=== PATIENT | male | born 1980 | race Caucasian/White ===

== ENCOUNTER 2019-03-13 15:49 | Emergency (ER) | payer OTHER ==
--- OUTSIDE RECORDS SUMMARY | 2019-03-13 16:21 | XMS REPORT | Continuity of Care Document ---
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 Onset: 12/23/2015 Elevated blood-pressure reading without Courtney Camarena M.D. Onset: 12/23/2015 diagnosis of hypertension Intra-abdominal and pelvic swelling, mass and Courtney Camarena M.D. Onset: lump Onychomycosis Courtney Camarena M.D. Onset: 12/23/2015 Varicose veins of lower extremity Courtney Camarena M.D. Onset: 12/23/2015 Hyperlipidemia Courtney Camarena M.D. Onset: 01/02/2016 Vitamin D deficiency Courtney Camarena M.D. Onset: 01/02/2016 Thrombocytopenic disorder Courtney Camarena M.D. Onset: 01/02/2016 Secondary endocrine diabetes mellitus Courtney Camarena M.D. Onset: 01/02/2016 Unspecified abdominal hernia without Courtney Camarena M.D. Onset: 01/02/2016 obstruction or gangrene Essential hypertension Courtney Camarena M.D. Onset: 01/02/2016 Mixed hyperlipidemia Courtney Camarena M.D. Onset: 06/11/2016 Obesity Courtney Camarena M.D. Onset: 06/11/2016 Type 2 diabetes mellitus Courtney Camarena M.D. Onset: 06/11/2016 Taking medication Courtney Camarena M.D. Onset: 06/11/2016 Gastroesophageal reflux disease Courtney Camarena M.D. Onset: 02/11/2017 Nausea Courtney Camarena M.D. Onset: 02/11/2017 Immunization Courtney Camarena M.D. Onset: 07/23/2017 Chalazion Courtney Camarena M.D. Onset: 09/20/2017 External hordeolum Courtney Camarena M.D. 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 @ [employer] ETOH Use Denies alcohol use Tobacco Use Start: Unknown Patient denies history of smoking Recreational Drug Use Never Used Drugs Smoking Status Reviewed: 02/27/19 Patient denies history of smoking Exercise Type/Frequency Does not exercise Allergies, Adverse Reactions, Alerts Description No Known Drug Allergies Medications Active Medications SIG Qnty Indications Ordering Date Provider Tamiflu 1 tab by mouth once 7caps Z20.828 Cristian Doyle MD 11/12/2018 75mg a day as directed Capsules Steglatro take 1 tablet by 90tabs Cristian Doyle MD 05/23/2018 5mg mouth every morning Tablets Metformin HCL 1 by mouth twice a 180tabs Cristian Doyle MD 04/14/2018 day 1000mg Tablets Amlodipine Besylate 1 by mouth every 90tabs I10 Cristian Doyle MD 02/14/2018 day 5mg Tablets Ramipril 1 by mouth twice 180caps Julieth Lai, 09/20/2017 10mg daily MD Capsules Pravastatin Sodium 1 by mouth every 90tabs E78.2 Courtney Camarena, 11/05/2016 day M.D. 20mg Tablets Fenofibrate 1 by mouth every 90caps E78.2 Courtney Camarena, 06/21/2016 Micronized day M.D. 134mg Capsules Freestyle Lancets Use directed twice 100units Courtney Camarena, 01/03/2016 daily before M.D. Misc breakfast and before supper Freestyle Test use as directed 100units Courtney Camarena, 01/03/2016 twice daily (before M.D. Strips breakfast and before supper) Freestyle Precision Freestyle glucose 1units Courtney Camarena, 01/03/2016 Isak Bood Glucose monitor Disp. 1 M.D. Monitoring System Sig. Use as directed twice W/Device Kit daily for blood glucose measurement Fish Oil Adult 1 po daily Unknown Gummies 113.5mg Chewtabs Vitamin D3 Adult 2 by mouth every 30units Unknown Gummies day 1000Unit Chewtabs Ranitidine HCL take one tablet by 180tabs Courtney Camarena, mouth twice a day M.D. 150mg Tablets History Medications Invokana 1 by mouth every 90tabs Courtney Camarena, 04/14/2018 - 300mg day M.D. 05/23/2018 Tablets Cephalexin Take 1 capsule 14caps H00.14 Courtney Camarena, 09/20/2017 - 500mg twice a day for 7 M.D. 02/14/2018 Capsules days Lisinopril 1 by mouth every 90tabs R80.9 Nicky Bright, 05/21/2017 - 10mg day M.D. 09/20/2017 Tablets Altace 1 by mouth twice a 180caps E08.21 Nicky Bright, 11/22/2016 - 10mg day M.D. 08/26/2017 Capsules Invokamet 1 by mouth twice a 180tabs E08.21 Courtney Camarena, 11/22/2016 - day M.D. 04/14/2018 150-1000mg Tablets Amlodipine Besylate 1 by mouth every 90tabs I10 Courtney Camarena, 11/05/2016 - day M.D. 02/14/2018 2.5mg Tablets Altace 1 tab by mouth 90caps E66.9 Nicky Bright, 06/21/2016 - 10mg every day M.D. 11/22/2016 Capsules Lovaza 1 capsule by mouth 180caps E78.2 Courtney Camarena, 06/11/2016 - 1gm Capsules twice a day M.D. Unknown (generic equivalent omega 3 fatty acid ok) Altace 1 tab by mouth 90caps I10 Nicky Bright, 03/15/2016 - 5mg Capsules every day M.D. 06/21/2016 Invokamet 1 by mouth twice a 180tabs E66.9 Nicky Bright, 03/15/2016 - 50-500mg day M.D. 11/22/2016 Tablets Invokana 1 by mouth every 90tabs E66.9 Nicky Bright, 01/24/2016 - 100mg day M.D. Unknown Tablets Metformin HCL 1 tab by mouth 180tabs E08.9 Courtney Camarena, 01/02/2016 - 500mg twice a day M.D. Unknown Tablets [place] 3 1 cap by mouth 60caps E78.5 Courtney Camarena, 01/02/2016 - 1000mg twice a day M.D. 02/01/160 Capsules Vitamin D 1 tab by mouth 4caps E55.9 Courtney Camarena, 01/02/2016 - (Ergocalciferol) once a week for 4 M.D. 06/11/2016 weeks [id number] Capsules Altace 1 tab by mouth 90caps E08.9 Courtney Camarena, 01/02/2016 - 2.5mg every day in the M.D. 03/15/2016 Capsules evening No Active Courtney Camarena, 12/23/2015 - Medications M.D. 01/02/2016 Slow-Mag 1 tab po bid Unknown - 71.5-119mg Unknown Tablets Immunizations CPT Code Status Date Vaccine Reaction Lot # [id number] Given 06/13/2018 Influenza Virus Vaccine, Quadrivalent, 36 none [id number] Mos+, .5ML [id number] Given 07/23/2017 Influenza Virus Vaccine Quadrivalent Iiv4 none [id number] Split Preser Free Id [id number] Given 09/02/2014 Influenza Vaccine (Fluzone) Age 3 And Older U-Menin Given 04/02/2002 Meningococcal,Unspecified U-Tetan Given 10/31/1997 Tetanus,Unspecified Vital Signs Date Vital Result Comment 11/12/2018 4:35pm BP Systolic 138 mmHg BP Diastolic 82 mmHg Heart Rate 110 /min Respiratory Rate 18 /min Height 68.25 inches 5'8.25" Weight 245.00 lb BMI (Body Mass Index) 37.0 kg/m2 BSA (Body Surface Area) 2.23 m2 [facility] body weight in kilograms 71 kg O2 % BldC Oximetry 98 % Ra 06/13/2018 1:17pm BP Systolic Sitting Left Arm 110 mmHg BP Diastolic Sitting Left Arm 80 mmHg Body Temperature 98.4 F Heart Rate 100 /min Respiratory Rate 24 /min Height 68.25 inches 5'8.25" Weight 241.00 lb BMI (Body Mass Index) 36.4 kg/m2 BSA (Body Surface Area) 2.22 m2 [facility] body weight in kilograms 71 kg O2 % BldC Oximetry 98 % 05/06/2018 9:30am BP Systolic 137 mmHg BP Diastolic 91 mmHg Body Temperature 97.6 F Heart Rate 114 /min Respiratory Rate 18 /min Height 68.25 inches 5'8.25" Weight 240.50 lb BMI (Body Mass Index) 36.3 kg/m2 BSA (Body Surface Area) 2.22 m2 [facility] body weight in kilograms 71 kg O2 % BldC Oximetry 95 % 02/14/2018 12:59pm BP Systolic 146 mmHg BP Diastolic 95 mmHg Body Temperature 98.3 F Heart Rate 113 /min Respiratory Rate 22 /min Height 68.25 inches 5'8.25" Weight 240.00 lb BMI (Body Mass Index) 36.2 kg/m2 BSA (Body Surface Area) 2.21 m2 [facility] body weight in kilograms 71 kg O2 % BldC Oximetry 97 % 09/20/2017 2:45pm BP Systolic 156 mmHg BP Diastolic 97 mmHg Heart Rate 119 /min Respiratory Rate 16 /min Height 68.25 inches 5'8.25" Weight 244.25 lb BMI (Body Mass Index) 36.9 kg/m2 BSA (Body Surface Area) 2.23 m2 [facility] body weight in kilograms 71 kg O2 % BldC Oximetry 96 % 07/23/2017 1:32pm BP Systolic 137 mmHg BP Diastolic 87 mmHg Heart Rate 110 /min Respiratory Rate 16 /min Height 68.25 inches 5'8.25" Weight 247.00 lb BMI (Body Mass Index) 37.3 kg/m2 BSA (Body Surface Area) 2.24 m2 [facility] body weight in kilograms 71 kg O2 % BldC Oximetry 97 % 05/21/2017 2:32pm BP Systolic 136 mmHg BP Diastolic 88 mmHg Height 68.25 inches 5'8.25" Weight 245.00 lb BMI (Body Mass Index) 37.0 kg/m2 BSA (Body Surface Area) 2.23 m2 [facility] body weight in kilograms 71 kg 02/25/2017 2:16pm BP Systolic 138 mmHg BP Diastolic 82 mmHg Heart Rate 104 /min Respiratory Rate 16 /min Height 68.25 inches 5'8.25" Weight 241.00 lb BMI (Body Mass Index) 36.4 kg/m2 BSA (Body Surface Area) 2.22 m2 [facility] body weight in kilograms 71 kg O2 % BldC Oximetry 98 % 02/11/2017 2:27pm BP Systolic 159 mmHg BP Diastolic 102 mmHg Heart Rate 109 /min Respiratory Rate 24 /min Height 68.25 inches 5'8.25" Weight 242.00 lb BMI (Body Mass Index) 36.5 kg/m2 BSA (Body Surface Area) 2.22 m2 [facility] body weight in kilograms 71 kg O2 % BldC Oximetry 95 % 11/22/2016 2:12pm BP Systolic 134 mmHg BP Diastolic 80 mmHg Height 68.25 inches 5'8.25" Weight 247.00 lb BMI (Body Mass Index) 37.3 kg/m2 BSA (Body Surface Area) 2.24 m2 11/05/2016 2:31pm BP Systolic 150 mmHg BP Diastolic 80 mmHg Body Temperature 98.1 F Heart Rate 106 /min Respiratory Rate 20 /min Height 68.25 inches 5'8.25" Weight 244.25 lb BMI (Body Mass Index) 36.9 kg/m2 BSA (Body Surface Area) 2.23 m2 O2 % BldC Oximetry 98 % 06/21/2016 12:58pm BP Systolic 138 mmHg BP Diastolic 90 mmHg Height 68.25 inches 5'8.25" Weight 234.00 lb BMI (Body Mass Index) 35.3 kg/m2 BSA (Body Surface Area) 2.19 m2 06/11/2016 1:25pm BP Systolic 110 mmHg BP Diastolic 84 mmHg Heart Rate 99 /min Respiratory Rate 20 /min Height 68.25 inches 5'8.25" Weight 233.00 lb BMI (Body Mass Index) 35.2 kg/m2 BSA (Body Surface Area) 2.19 m2 O2 % BldC Oximetry 98 % 05/08/2016 2:37pm Height 68.25 inches 5'8.25" Weight 225.00 lb BMI (Body Mass Index) 34.0 kg/m2 BSA (Body Surface Area) 2.15 m2 [facility] body weight in kilograms 71 kg 03/15/2016 11:20am BP Systolic 138 mmHg BP Diastolic 90 mmHg Height 68.25 inches 5'8.25" Weight 222.25 lb BMI (Body Mass Index) 33.5 kg/m2 BSA (Body Surface Area) 2.14 m2 02/14/2016 2:39pm Height 68.25 inches 5'8.25" Weight 221.00 lb BMI (Body Mass Index) 33.4 kg/m2 BSA (Body Surface Area) 2.14 m2 [facility] body weight in kilograms 71 kg 01/24/2016 1:12pm BP Systolic 158 mmHg BP Diastolic 90 mmHg Height 68.25 inches 5'8.25" Weight 223.00 lb BMI (Body Mass Index) 33.7 kg/m2 BSA (Body Surface Area) 2.15 m2 01/02/2016 2:34pm BP Systolic 148 mmHg BP Diastolic 88 mmHg Body Temperature 97.9 F Heart Rate 103 /min Respiratory Rate 20 /min Height 68.25 inches 5'8.25" Weight 223.00 lb BMI (Body Mass Index) 33.7 kg/m2 BSA (Body Surface Area) 2.15 m2 O2 % BldC Oximetry 98 % 12/23/2015 8:39am BP Systolic 158 mmHg L Arm BP Diastolic 100 mmHg L Arm Body Temperature 96.3 F Heart Rate 97 /min Respiratory Rate 16 /min Height 68.25 inches 5'8.25" Weight 221.00 lb BMI (Body Mass Index) 33.4 kg/m2 BSA (Body Surface Area) 2.14 m2 O2 % BldC Oximetry 96 % Results Test Date Facility Test Result H/L Range Note CBC 03/09/[address] White Blood 6.1 K/uL Normal 3.4-10.5 1 W/Automated [address] Count Diff [place], [place] [id number] [phone] Red Blood Count 5.48 M/uL Normal 4.20-5.80 Hemoglobin 15.8 gm/dL Normal 12.8-17.0 Hematocrit 46.1 % Normal 38.0-48.0 Mean Cell Volume 84.1 fl Normal 80.0-96.0 Mean Corpuscular HGB 28.8 pg Normal 27.0-33.0 Mean Corpuscular HGB Conc 34.3 g/dL Normal 31.7-36.0 Platelet Count 163 K/uL Normal 155-360 Red Cell Distri Width SD 38.5 fl Normal 36-51 Red Cell Distri Width %CV 12.7 % Normal 11.6-15.8 Mean Platelet Volume 12.4 fl High 6.6-10.6 Neut% 49.4 % Normal 33.0-73.0 Lymph % 39.4 % Normal 20.0-42.0 [place] % 9.7 % Normal 0.0-10.0 Eo% 1.0 % Normal 0.0-6.6 Bas% 0.3 % Normal 0.0-1.1 Immature Grans 0.2 % Normal 0.0-5.0 NRBC % 0.0 /100WBC < 10/ 100 WBC Neut# 3.01 K/uL Normal 1.8-7.0 Lymph # 2.40 K/uL Normal 1.0-4.0 [place] # 0.59 K/uL Normal 0.0-0.8 Eos # 0.06 K/uL Normal 0.0-0.5 Baso # 0.02 K/uL Normal 0.0-0.1 Immature Grans Absolute 0.01 K/uL NRBC # 0.00 K/uL Comprehensive Metabolic 03/09/[address] [facility] [address] Glucose 218 mg/dL High 74-106 Panel [address] [place] [address] [phone] BUN 17 mg/dL Normal 7-18 Creatinine 0.9 mg/dL Normal 0.6-1.3 Glom Filtration Rate, Estimate >60 mL/min >60 If >60 mL/min >60 2 BUN/Creat 18.8 ratio Sodium 138 mmol/L Normal 136-145 Potassium 3.7 mmol/L Normal 3.5-5.1 Chloride 103 mmol/L Normal 98-107 Carbon Dioxide 25 mmol/L Normal 21-32 Anion Gap 10 mEq/L Normal 8-16 Calcium 8.6 mg/dL Normal 8.5-10.1 Total Protein 7.6 g/dL Normal 6.4-8.2 Albumin 3.6 g/dL Normal 3.4-5.0 Globulin 4.0 g/dL Normal 1.9-4.3 Alb/Glob 0.9 ratio Bilirubin,Total 0.3 mg/dL Normal 0.2-1.0 Sgot/Ast 32 U/L Normal 15-37 SGPT/Alt 56 U/L Normal 12-78 Alkaline Phosphatase 106 U/L Normal 45-117 LDL Cholesterol Profile 03/09/[address] [facility] [address] Cholesterol 181 mg/dL <200 3 [address] [place] [address] [phone] Triglycerides 405 mg/dL High <150 4 HDL Cholesterol 34 mg/dL Low >40 5 LDL-Cholesterol TNP mg/dL < 100 6 Glycohemoglobin 03/09/[address] [facility] [address] Glycohemoglobin 7.7 % High 4.2-6.3 7 A1c 40[address] [facility] (A1c) [place], [place] [address] [phone] eAG 174 mg/dL T7/TSH 03/09/[address] [facility] [address] T3 Uptake 32 % Normal 31-39 [address] [place], [place] [id number] [phone] Thyroxine (T4) 12.0 g/dL Normal 4.7-13.3 T7 3.84 g/dL Low 5.0-12.0 Thyroid Stim Hormone 3.19 uIU/mL Normal 0.30-4.20 Microalbumin,Random 06/03/2018 [facility] Microalbumin,Urine 64.8 < [address] mg/L 20.0 [place] [address] [phone] Glycohemoglobin A1c 06/03/2018 [facility] Glycohemoglobin 6.8 % High 4.2-[address] (A1c) .3 [place] [address] [phone] eAG 148 mg/dL LDL Cholesterol Profile 06/03/2018 [facility] Cholesterol 164 mg/dL <[address] [place] [address] [phone] Triglycerides 339 mg/dL High <150 11 HDL Cholesterol 35 mg/dL Low >40 12 LDL-Cholesterol 61 mg/dL < 100 13 Laboratory test 06/03/2018 [facility] Magnesium 2.1 mg/dL Normal 1.8-2.[address] [place] [address] [phone] Comprehensive 06/03/2018 [facility] Glucose 187 mg/dL High 74-106 Metabolic Panel [address] [place] [address] [phone] BUN 21 mg/dL High 7-18 Creatinine 1.0 mg/dL Normal 0.6-1.3 Glom Filtration Rate, Estimate >60 mL/min >60 If >60 mL/min >60 14 BUN/Creat 21.0 ratio Sodium 142 mmol/L Normal 136-145 Potassium 4.0 mmol/L Normal 3.5-5.1 Chloride 106 mmol/L Normal 98-107 Carbon Dioxide 28 mmol/L Normal 21-32 Anion Gap 8 mEq/L Normal 8-16 Calcium 9.0 mg/dL Normal 8.5-10.1 Total Protein 7.7 g/dL Normal 6.4-8.2 Albumin 3.6 g/dL Normal 3.4-5.0 Globulin 4.1 g/dL Normal 1.9-4.3 Alb/Glob 0.9 ratio Bilirubin,Total 0.3 mg/dL Normal 0.2-1.0 Sgot/Ast 29 U/L Normal 15-37 SGPT/Alt 47 U/L Normal 12-78 Alkaline Phosphatase 83 U/L Normal 45-117 Laboratory test 06/03/2018 [facility] CK 85 U/L Normal 39-308 finding [address] [place], [place] [id number] [phone] CBS W/Automated 06/03/2018 [facility] White Blood 7.0 K/uL Normal 3.4-10.5 Diff [address] [place] [address] [phone] Red Blood Count 5.37 M/uL Normal 4.20-5.80 Hemoglobin 15.5 gm/dL Normal 12.8-17.0 Hematocrit 45.4 % Normal 38.0-48.0 Mean Cell Volume 84.5 fl Normal 80.0-96.0 Mean Corpuscular HGB 28.9 pg Normal 27.0-33.0 Mean Corpuscular HGB Conc 34.1 g/dL Normal 31.7-36.0 Platelet Count 159 K/uL Normal 155-360 Red Cell Distri Width SD 39.8 fl Normal 36-51 Red Cell Distri Width %CV 13.1 % Normal 11.6-15.8 Mean Platelet Volume 12.1 fL High 6.6-10.6 Neut% 54.9 % Normal 33.0-73.0 Lymph % 33.9 % Normal 20.0-42.0 [place] % 9.8 % Normal 0.0-10.0 Eo% 1.1 % Normal 0.0-6.6 Bas% 0.3 % Normal 0.0-1.1 Neut# 3.86 K/uL Normal 1.8-7.0 Lymph # 2.39 K/uL Normal 1.0-4.0 [place] # 0.69 K/uL Normal 0.0-0.8 Eos # 0.08 K/uL Normal 0.0-0.5 Baso # 0.02 K/uL Normal 0.0-0.1 Laboratory test 02/11/2018 [facility] Triglycerides 199 mg/dL High <150 15, 16 finding [address] [place], [place] [address] [phone] CK 82 U/L Normal 39-308 Direct LDL 02/11/2018 [facility] LDL Chol. 92 mg/dL 0-99 Cholesterol [address] [facility] (Direct) [place], [place] [id number] [phone] Comment (SEE NOTE) 17 Laboratory test 02/11/2018 [facility] HDL Cholesterol 37 mg/dL Low >40 18 finding [address] [place] [address] [phone] Ua RFX Micro & 02/11/2018 [facility] Urine Color YELLOW Yellow Culture II [address] [place] [address] [phone] Urine Clarity CLEAR Clear Urine Glucose - Dipstick >=1000 mg/dL High Negative Urine Bilirubin - Dipstick NEGATIVE Negative Urine Ketone NEGATIVE mg/dL Negative Urine Specific [place] 1.015 Normal 1.010-1.030 Urine Blood NEGATIVE Negative Urine PH 6.0 Low 6.5-7.5 Urine Protein - Dipstick NEGATIVE mg/dL Negative Urine Urobilinogen - Dipstick 0.2 E.U./dL Normal 0.2-1.0 Urine Nitrite - Dipstick NEGATIVE Negative Urine Leuk Esterase NEGATIVE Negative Source: URINE, CLEAN CAT <SEE NOTE> 19 Laboratory test 02/11/2018 [facility] Magnesium 2.1 mg/dL Normal 1.8-2.4 finding [address] [address] [phone] Comprehensive 02/11/2018 [facility] Glucose 162 mg/dL High 74-106 Metabolic Panel [address] [place] [address] [phone] BUN 17 mg/dL Normal 7-18 Creatinine 1.1 mg/dL Normal 0.6-1.3 Glom Filtration Rate, Estimate >60 mL/min >60 If >60 mL/min >60 20 BUN/Creat 15.4 ratio Sodium 142 mmol/L Normal 136-145 Potassium 4.0 mmol/L Normal 3.5-5.1 Chloride 108 mmol/L High 98-107 Carbon Dioxide 27 mmol/L Normal 21-32 Anion Gap 7 mEq/L Low 8-16 Calcium 9.0 mg/dL Normal 8.5-10.1 Total Protein 7.8 g/dL Normal 6.4-8.2 Albumin 3.8 g/dL Normal 3.4-5.0 Globulin 4.0 g/dL Normal 1.9-4.3 Alb/Glob 1.0 ratio Bilirubin,Total 0.4 mg/dL Normal 0.2-1.0 Sgot/Ast 38 U/L High 15-37 SGPT/Alt 64 U/L Normal 12-78 Alkaline Phosphatase 76 U/L Normal 45-117 CBS W/Automated 02/11/2018 [facility] White Blood 6.3 K/uL Normal 3.4-10.5 Diff [address] [place] [address] [phone] Red Blood Count 5.64 M/uL Normal 4.20-5.80 Hemoglobin 16.2 gm/dL Normal 12.8-17.0 Hematocrit 47.1 % Normal 38.0-48.0 Mean Cell Volume 83.5 fl Normal 80.0-96.0 Mean Corpuscular HGB 28.7 pg Normal 27.0-33.0 Mean Corpuscular HGB Conc 34.4 g/dL Normal 31.7-36.0 Platelet Count 159 K/uL Normal 155-360 Red Cell Distri Width SD 39.8 fl Normal 36-51 Red Cell Distri Width %CV 13.3 % Normal 11.6-15.8 Mean Platelet Volume 12.1 fL High 6.6-10.6 Neut% 56.1 % Normal 33.0-73.0 Lymph % 32.7 % Normal 20.0-42.0 [place] % 9.7 % Normal 0.0-10.0 Eo% 1.3 % Normal 0.0-6.6 Bas% 0.2 % Normal 0.0-1.1 Neut# 3.52 K/uL Normal 1.8-7.0 Lymph # 2.05 K/uL Normal 1.0-4.0 [place] # 0.61 K/uL Normal 0.0-0.8 Eos # 0.08 K/uL Normal 0.0-0.5 Baso # 0.01 K/uL Normal 0.0-0.1 Glycohemoglobin 02/11/2018 [facility] Glycohemoglobin 7.8 % High 4.2-6.[address] (A1c) [place] [address] [phone] eAG 177 mg/dL LDL Cholesterol 07/05/2017 [facility] Cholesterol 172 mg/dL <200 22, 23 Profile [address] [place] [address] [phone] Triglycerides 268 mg/dL High <150 24 HDL Cholesterol 39 mg/dL Low >40 25 LDL-Cholesterol 79 mg/dL < 100 26 Ua RFX Micro & Culture 07/05/2017 [facility] Urine Color YELLOW Yellow II [address] [place] [address] [phone] Urine Clarity CLEAR Clear Urine Glucose - Dipstick >=1000 mg/dL High Negative Urine Bilirubin - Dipstick NEGATIVE Negative Urine Ketone NEGATIVE mg/dL Negative Urine Specific [place] 1.015 Normal 1.010-1.030 Urine Blood NEGATIVE Negative Urine PH 6.0 Low 6.5-7.5 Urine Protein - Dipstick TRACE mg/dL Negative Urine Urobilinogen - Dipstick 0.2 E.U./dL Normal 0.2-1.0 Urine Nitrite - Dipstick NEGATIVE Negative Urine Leuk Esterase NEGATIVE Negative Source: URINE, CLEAN CAT <SEE NOTE> 27 Microalbumin,Random 07/05/2017 [facility] Microalbumin,Urine 136.0 < Urine [address] mg/L 20.0 [place] [address] [phone] Laboratory test 07/05/2017 [facility] CK 82 U/L Normal 39-[address] [place] [address] [phone] CBS W/Automated Diff 07/05/2017 [facility] White Blood Count 8.9 Normal 3.4-[address] K/uL 0.5 [place] [address] [phone] Red Blood Count 5.35 M/uL Normal 4.20-5.80 Hemoglobin 15.2 gm/dL Normal 12.8-17.0 Hematocrit 44.7 % Normal 38.0-48.0 Mean Cell Volume 83.6 fl Normal 80.0-96.0 Mean Corpuscular HGB 28.4 pg Normal 27.0-33.0 Mean Corpuscular HGB Conc 34.0 g/dL Normal 31.7-36.0 Platelet Count 180 K/uL Normal 150-400 Red Cell Distri Width SD 40.1 fl Normal 36-51 Red Cell Distri Width %CV 13.3 % Normal 11.6-15.8 Mean Platelet Volume 12.2 fL High 6.6-10.6 Neut% 59.0 % Normal 33.0-73.0 Lymph % 29.2 % Normal 20.0-42.0 [place] % 10.7 % High 0.0-10.0 Eo% 0.8 % Normal 0.0-6.6 Bas% 0.3 % Normal 0.0-1.1 Neut# 5.23 K/uL Normal 1.8-7.0 Lymph # 2.59 K/uL Normal 1.0-4.0 [place] # 0.95 K/uL High 0.0-0.8 Eos # 0.07 K/uL Normal 0.0-0.5 Baso # 0.03 K/uL Normal 0.0-0.1 Comprehensive Metabolic 07/05/2017 [facility] Glucose 142 mg/dL High 74-[address] [place] [address] [phone] BUN 17 mg/dL Normal 7-18 Creatinine 1.0 mg/dL Normal 0.6-1.3 Glom Filtration Rate, Estimate >60 mL/min >60 If >60 mL/min >60 28 BUN/Creat 17.0 ratio Sodium 138 mmol/L Normal 136-145 Potassium 4.1 mmol/L Normal 3.5-5.1 Chloride 103 mmol/L Normal 98-107 Carbon Dioxide 28 mmol/L Normal 21-32 Anion Gap 7 mEq/L Low 8-16 Calcium 8.9 mg/dL Normal 8.5-10.1 Total Protein 7.7 g/dL Normal 6.4-8.2 Albumin 3.6 g/dL Normal 3.4-5.0 Globulin 4.1 g/dL Normal 1.9-4.3 Alb/Glob 0.9 ratio Bilirubin,Total 0.4 mg/dL Normal 0.2-1.0 Sgot/Ast 28 U/L Normal 15-37 SGPT/Alt 53 U/L Normal 12-78 Alkaline Phosphatase 78 U/L Normal 45-117 Laboratory test 07/05/2017 [facility] Magnesium 2.0 Normal 1.8-2.[address] mg/dL [place], [place] [address] [phone] Glycohemoglobin 07/05/2017 [facility] Glycohemoglobin 6.8 % High 4.2-6.3 [address] (A1c) [place], [place] [address] [phone] eAG 148 mg/dL Microalb/Creat 05/18/2017 [facility] Microalbumin,Urine 263.0 < 20.0 30 Ratio,Random [address] mg/[place] [address] [phone] Microalbumin/Creatinine Ratio 313.1 ug/mgCrt < 30.0 Urine Creatinine Conc 84 mg/dL LDL Cholesterol Profile 05/18/2017 [facility] Cholesterol 162 mg/dL <[address] [place], [place] [address] [phone] Triglycerides 276 mg/dL High <150 32 HDL Cholesterol 32 mg/dL Low >40 33 LDL-Cholesterol 75 mg/dL < 100 34 Glycohemoglobin 05/18/2017 [facility] Glycohemoglobin 6.4 % High 4.2-6.3 [address] (A1c) [place], [place] [address] [phone] eAG 137 mg/dL Comprehensive Metabolic 05/18/2017 [facility] Glucose 143 mg/dL High 74-[address] [place] [address] [phone] BUN 18 mg/dL Normal 7-18 Creatinine 0.9 mg/dL Normal 0.6-1.3 Glom Filtration Rate, Estimate >60 mL/min >60 If >60 mL/min >60 36 BUN/Creat 20.0 ratio Sodium 140 mmol/L Normal 136-145 Potassium 4.2 mmol/L Normal 3.5-5.1 Chloride 107 mmol/L Normal 98-107 Carbon Dioxide 27 mmol/L Normal 21-32 Anion Gap 6 mEq/L Low 8-16 Calcium 8.5 mg/dL Normal 8.5-10.1 Total Protein 7.6 g/dL Normal 6.4-8.2 Albumin 3.6 g/dL Normal 3.4-5.0 Globulin 4.0 g/dL Normal 1.9-4.3 Alb/Glob 0.9 ratio Bilirubin,Total 0.4 mg/dL Normal 0.2-1.0 Sgot/Ast 22 U/L Normal 15-37 SGPT/Alt 41 U/L Normal 12-78 Alkaline Phosphatase 90 U/L Normal 45-117 CBS W/Automated 05/18/2017 [facility] White Blood 8.2 K/uL Normal 3.4-10.[address] [place] [address] [phone] Red Blood Count 5.44 M/uL Normal 4.20-5.80 Hemoglobin 15.8 gm/dL Normal 12.8-17.0 Hematocrit 45.4 % Normal 38.0-48.0 Mean Cell Volume 83.5 fl Normal 80.0-96.0 Mean Corpuscular HGB 29.0 pg Normal 27.0-33.0 Mean Corpuscular HGB Conc 34.8 g/dL Normal 31.7-36.0 Platelet Count 157 K/uL Normal 150-400 Red Cell Distri Width SD 40.4 fl Normal 36-51 Red Cell Distri Width %CV 13.5 % Normal 11.6-15.8 Mean Platelet Volume 12.3 fL High 6.6-10.6 Neut% 59.7 % Normal 33.0-73.0 Lymph % 28.8 % Normal 20.0-42.0 [place] % 10.1 % High 0.0-10.0 Eo% 1.2 % Normal 0.0-6.6 Bas% 0.2 % Normal 0.0-1.1 Neut# 4.89 K/uL Normal 1.8-7.0 Lymph # 2.36 K/uL Normal 1.0-4.0 [place] # 0.83 K/uL High 0.0-0.8 Eos # 0.10 K/uL Normal 0.0-0.5 Baso # 0.02 K/uL Normal 0.0-0.1 Direct LDL 02/20/2017 [facility] LDL Chol. 99 mg/dL 0-99 37, [address] (Direct) [place], [place] [id number] [phone] TSH Reflex FT4 02/20/2017 [facility] Thyroid Stim 2.57 Normal 0.30-4. And/Or FT3 [address] Hormone uIU/mL 20 [place], [place] [id number] [phone] Reflex add FT3? Y Reflex add FT4? Y CBS W/Automated 02/20/2017 [facility] White Blood 7.4 K/uL Normal 3.4-10.[address] Count [place], [place] [address] [phone] Red Blood Count 5.75 M/uL Normal 4.20-5.80 Hemoglobin 16.3 gm/dL Normal 12.8-17.0 Hematocrit 46.9 % Normal 38.0-48.0 Mean Cell Volume 81.6 fl Normal 80.0-96.0 Mean Corpuscular HGB 28.3 pg Normal 27.0-33.0 Mean Corpuscular HGB Conc 34.8 g/dL Normal 31.7-36.0 Platelet Count 176 K/uL Normal 150-400 Red Cell Distri Width SD 39.7 fl Normal 36-51 Red Cell Distri Width %CV 13.5 % Normal 11.6-15.8 Mean Platelet Volume 12.2 fL High 6.6-10.6 Neut% 59.4 % Normal 33.0-73.0 Lymph % 29.8 % Normal 20.0-42.0 [place] % 9.7 % Normal 0.0-10.0 Eo% 0.8 % Normal 0.0-6.6 Bas% 0.3 % Normal 0.0-1.1 Neut# 4.40 K/uL Normal 1.8-7.0 Lymph # 2.21 K/uL Normal 1.0-4.0 [place] # 0.72 K/uL Normal 0.0-0.8 Eos # 0.06 K/uL Normal 0.0-0.5 Baso # 0.02 K/uL Normal 0.0-0.1 Comprehensive Metabolic 02/20/2017 [facility] Glucose 119 mg/dL High 74-106 Panel [address] [place] [address] [phone] BUN 20 mg/dL High 7-18 Creatinine 1.1 mg/dL Normal 0.6-1.3 Glom Filtration Rate, Estimate >60 mL/min >60 If >60 mL/min >60 39 BUN/Creat 18.1 ratio Sodium 138 mmol/L Normal 136-145 Potassium 3.9 mmol/L Normal 3.5-5.1 Chloride 103 mmol/L Normal 98-107 Carbon Dioxide 29 mmol/L Normal 21-32 Anion Gap 6 mEq/L Low 8-16 Calcium 9.0 mg/dL Normal 8.5-10.1 Total Protein 7.9 g/dL Normal 6.4-8.2 Albumin 3.8 g/dL Normal 3.4-5.0 Globulin 4.1 g/dL Normal 1.9-4.3 Alb/Glob 0.9 ratio Bilirubin,Total 0.5 mg/dL Normal 0.2-1.0 Sgot/Ast 37 U/L Normal 15-37 SGPT/Alt 60 U/L Normal 12-78 Alkaline Phosphatase 69 U/L Normal 45-117 Reflex add FT3? Y Reflex add FT4? Y CK 02/20/2017 [facility] CK 105 U/L Normal 39-308 [address] [place], [place] [id number] [phone] Reflex add FT3? Y Reflex add FT4? Y Triglycerides 02/20/2017 [facility] Triglycerides 159 mg/dL High <150 40 [address] [place] [address] [phone] Reflex add FT3? Y Reflex add FT4? Y HDL Cholesterol 02/20/2017 [facility] HDL Cholesterol 41 mg/dL >40 41 [address] [place] [address] [phone] Reflex add FT3? Y Reflex add FT4? Y Microalbumin,Random 02/20/2017 [facility] Microalbumin,Urine 241.0 < Urine [address] mg/L 20.0 [place] [address] [phone] Glycohemoglobin A1c 02/20/2017 [facility] Glycohemoglobin 6.4 % High 4.2-[address] (A1c) .3 [place] [address] [phone] eAG 137 mg/dL Laboratory test 02/11/2017 [facility] Amylase 53 U/L Normal 25-115 43, [address] [place] [address] [phone] Lipase 114 U/L Normal 73-393 45 H Pylori,Igm,Igg,Iga 02/11/2017 [facility] Helicobacter <0.9 0.0-0.[address] Pylori, Igg U/[place] [address] [phone] Helicobacter Pylori, Iga Abs < 9.0 units 0.0-8.9 47 Helicobacter Pylori, Igm Abs < 9.0 units 0.0-8.9 48 Laboratory 02/11/2017 [facility] Troponin-I < 0.015 49 test finding [address] ng/[place] [address] [phone] Hemoglobin A1c 11/01/2016 [facility] Glycohemoglobin 7.2 % High 4.2- 50, [address] (A1c) 6.3 51 [place] [address] [phone] eAG 160 mg/dL Urine 11/01/2016 [facility] Microalbumin,Urine 478.0 Critical < Microalbumin [address] mg/L high 20.0 [place] [address] [phone] Laboratory 11/01/2016 [facility] HDL Cholesterol 37 Low >40 52 test finding [address] mg/[place] [address] [phone] Triglycerides 242 mg/dL High <150 53 LDL Direct 11/01/2016 [facility] LDL Chol. 147 mg/dL High 0-99 [address] (Direct) [place] [address] [phone] CBC W/Auto 11/01/2016 [facility] White Blood 7.8 K/uL Normal 3.4-10.5 Diff & PLT [address] [place] [address] [phone] Red Blood Count 5.80 M/uL Normal 4.20-5.80 Hemoglobin 16.1 gm/dL Normal 12.8-17.0 Hematocrit 46.9 % Normal 38.0-48.0 Mean Cell Volume 80.9 fl Normal 80.0-96.0 Mean Corpuscular HGB 27.8 pg Normal 27.0-33.0 Mean Corpuscular HGB Conc 34.3 g/dL Normal 31.7-36.0 Platelet Count 180 K/uL Normal 150-400 Red Cell Distri Width SD 38.8 fl Normal 36-51 Red Cell Distri Width %CV 13.4 % Normal 11.6-15.8 Mean Platelet Volume 11.9 fL High 6.6-10.6 Neut% 53.8 % Normal 33.0-73.0 Lymph % 33.5 % Normal 20.0-42.0 [place] % 11.3 % High 0.0-10.0 Eo% 0.9 % Normal 0.0-6.6 Bas% 0.5 % Normal 0.0-1.1 Neut# 4.20 K/uL Normal 1.8-7.0 Lymph # 2.62 K/uL Normal 1.0-4.0 [place] # 0.88 K/uL High 0.0-0.8 Eos # 0.07 K/uL Normal 0.0-0.5 Baso # 0.04 K/uL Normal 0.0-0.1 CMP Panel (14 Test) 11/01/2016 [facility] Glucose 159 mg/dL High 74-[address] [place] [address] [phone] BUN 19 mg/dL High 7-18 Creatinine 1.0 mg/dL Normal 0.6-1.3 Glom Filtration Rate, Estimate >60 mL/min >60 If >60 mL/min >60 55 BUN/Creat 19.0 ratio Sodium 141 mmol/L Normal 136-145 Potassium 4.0 mmol/L Normal 3.5-5.1 Chloride 106 mmol/L Normal 98-107 Carbon Dioxide 27 mmol/L Normal 21-32 Anion Gap 8 mEq/L Normal 8-16 Calcium 8.4 mg/dL Low 8.5-10.1 Total Protein 7.5 g/dL Normal 6.4-8.2 Albumin 3.4 g/dL Normal 3.4-5.0 Globulin 4.1 g/dL Normal 1.9-4.3 Alb/Glob 0.8 ratio Bilirubin,Total 0.4 mg/dL Normal 0.2-1.0 Sgot/Ast 24 U/L Normal 15-37 SGPT/Alt 45 U/L Normal 12-78 Alkaline Phosphatase 79 U/L Normal 45-117 Comprehensive 06/20/2016 [facility] Glucose 132 mg/dL High 74-106 56 Metabolic Panel [address] [place] [address] [phone] BUN 20 mg/dL High 7-18 Creatinine 0.8 mg/dL Normal 0.6-1.3 Glom Filtration Rate, Estimate >60 mL/min Normal >60 If >60 mL/min Normal >60 57 BUN/Creat 25.0 ratio Normal Sodium 138 mmol/L Normal 136-145 Potassium 4.0 mmol/L Normal 3.5-5.1 Chloride 104 mmol/L Normal 98-107 Carbon Dioxide 29 mmol/L Normal 21-32 Anion Gap 5 mEq/L Low 8-16 Calcium 8.6 mg/dL Normal 8.5-10.1 Total Protein 7.4 g/dL Normal 6.4-8.2 Albumin 3.3 g/dL Low 3.4-5.0 Globulin 4.1 g/dL Normal 1.9-4.3 Alb/Glob 0.8 ratio Normal Bilirubin,Total 0.4 mg/dL Normal 0.2-1.0 Sgot/Ast 19 U/L Normal 15-37 SGPT/Alt 30 U/L Normal 12-78 Alkaline Phosphatase 77 U/L Normal 45-117 @[facility] Pat Id: [id number] @[facility] Req #: [id number] Is Patient Fasting? Fasting Glycohemoglobin 06/20/2016 [facility] Glycohemoglobin 6.4 % High 4.2-6.3 [address] (A1c) [place] [address] [phone] eAG 137 mg/dL Normal @[facility] Pat Id: [id number] @[facility] Req #: [id number] LDL Cholesterol 06/20/2016 [facility] Cholesterol 198 mg/dL Normal <200 [address] [place], [place] [address] [phone] Triglycerides 388 mg/dL High <150 60 HDL Cholesterol 34 mg/dL Low >40 61 LDL-Cholesterol 86 mg/dL Normal < 100 62 @[facility] Pat Id: [id number] @[facility] Req #: [id number] Is Patient Fasting? Fasting CBS W/Automated 06/20/2016 [facility] White Blood 8.3 K/uL Normal 3.4-10.[address] [place] [address] [phone] Red Blood Count 5.87 M/uL High 4.20-5.80 Hemoglobin 16.3 gm/dL Normal 12.8-17.0 Hematocrit 47.7 % Normal 38.0-48.0 Mean Cell Volume 81.3 fl Normal 80.0-96.0 Mean Corpuscular HGB 27.8 pg Normal 27.0-33.0 Mean Corpuscular HGB Conc 34.2 g/dL Normal 31.7-36.0 Platelet Count 159 K/uL Normal 150-400 Red Cell Distri Width SD 39.9 fl Normal 36-51 Red Cell Distri Width %CV 13.8 % Normal 11.6-15.8 Mean Platelet Volume 12.2 fL High 6.6-10.6 Neut% 55.9 % Normal 33.0-73.0 Lymph % 32.4 % Normal 17.0-56.0 [place] % 10.2 % High 0.0-10.0 Eo% 1.1 % Normal 0.0-5.0 Bas% 0.4 % Normal 0.1-1.0 Neut# 4.65 K/uL Normal 1.8-7.0 Lymph # 2.69 K/uL Normal 1.8-7.0 [place] # 0.85 K/uL High 0.0-0.8 Eos # 0.09 K/uL Normal 0.0-0.5 Baso # 0.03 K/uL Low 0.1-0.2 @[facility] Pat Id: [id number] @[facility] Req #: [id number] Microalbumin,Random 06/20/2016 [facility] Microalbumin,Urine 590.0 Critical < Urine [address] mg/L high 20.0 [place] [address] [phone] @[facility] Pat Id: [id number] @[facility] Req #: [id number] LDL Cholesterol 06/08/2016 [facility] Cholesterol 197 mg/dL Normal <200 63, 64 Profile [address] [place] [address] [phone] Triglycerides 526 mg/dL High <150 65 HDL Cholesterol 31 mg/dL Low >40 66 LDL-Cholesterol TNP mg/dL Normal < 100 67 @[facility] Pat Id: [id number] @[facility] Req #: [id number] Is Patient Fasting? Non-Fasting Liver Function 06/08/2016 [facility] Total Protein 7.7 g/dL Normal 6.4-8.2 Tests [address] [place] [address] [phone] Albumin 3.4 g/dL Normal 3.4-5.0 Globulin 4.3 g/dL Normal 1.9-4.3 Alb/Glob 0.8 ratio Normal Bilirubin,Total 0.3 mg/dL Normal 0.2-1.0 Bilirubin,Direct < 0.1 mg/dL Normal 0.0-0.2 Bilirubin,Indirect 0.2 mg/dL Normal 0.0-0.9 Sgot/Ast 15 U/L Normal 15-37 SGPT/Alt 35 U/L Normal 12-78 Alkaline Phosphatase 97 U/L Normal 45-117 @[facility] Pat Id: [id number] @[facility] Req #: [id number] Is Patient Fasting? Non-Fasting CBC W/Automated Diff 03/09/2016 [facility] White Blood 6.3 K/uL 3.4-10.[address] [place] [address] [phone] Red Blood Count 5.98 M/uL High 4.20-5.80 Hemoglobin 17.0 gm/dL 12.8-17.0 Hematocrit 49.1 % High 38.0-48.0 Mean Cell Volume 82.1 fl 80.0-96.0 Mean Corpuscular HGB 28.4 pg 27.0-33.0 Mean Corpuscular HGB Conc 34.6 g/dL 31.7-36.0 Platelet Count 164 K/uL 150-400 Red Cell Distri Width SD 38.9 fl 36-51 Red Cell Distri Width %CV 13.2 % 11.6-15.8 Mean Platelet Volume 11.8 fL High 6.6-10.6 Neut% 52.6 % 33.0-73.0 Lymph % 37.3 % 17.0-56.0 [place] % 8.8 % 0.0-10.0 Eo% 1.0 % 0.0-5.0 Bas% 0.3 % 0.1-1.0 Neut# 3.29 K/uL 1.8-7.0 Lymph # 2.33 K/uL 1.8-7.0 [place] # 0.55 K/uL 0.0-0.8 Eos # 0.06 K/uL 0.0-0.5 Baso # 0.02 K/uL Low 0.1-0.2 Comprehensive Metabolic 03/09/2016 [facility] Glucose 124 mg/dL High 74-[address] [place] [address] [phone] BUN 19 mg/dL High 7-18 Creatinine 0.8 mg/dL 0.6-1.3 Glom Filtration Rate, Estimate >60 mL/min >60 If >60 mL/min >60 68 BUN/Creat 23.7 ratio Sodium 140 mmol/L 136-145 Potassium 4.2 mmol/L 3.5-5.1 Chloride 106 mmol/L 98-107 Carbon Dioxide 28 mmol/L 21-32 Anion Gap 6 mEq/L Low 8-16 Calcium 8.7 mg/dL 8.5-10.1 Total Protein 7.5 g/dL 6.4-8.2 Albumin 3.4 g/dL 3.4-5.0 Globulin 4.1 g/dL 1.9-4.3 Alb/Glob 0.8 ratio Bilirubin,Total 0.4 mg/dL 0.2-1.0 Sgot/Ast 22 U/L 15-37 SGPT/Alt 41 U/L 12-78 Alkaline Phosphatase 74 U/L 45-117 Glycohemoglobin 03/09/2016 [facility] Glycohemoglobin 6.6 % High 4.2-6.3 [address] (A1c) [place] [address] [phone] eAG 143 mg/dL LDL Cholesterol Profile 03/09/2016 [facility] Cholesterol 195 mg/dL <[address] [place] [address] [phone] Triglycerides 233 mg/dL High <150 71 HDL Cholesterol 31 mg/dL Low >40 72 LDL-Cholesterol 117 mg/dL < 100 73 Microalbumin,Random 03/09/2016 [facility] Microalbumin,Urine 932.0 Critical < Urine [address] mg/L high 20.0 [place] [address] [phone] Laboratory test 01/04/2016 [facility] Ia 2 Autoantibodies < 1.0 . [address] U/mL 4 [place] [address] [phone] C-Peptide 3.7 ng/mL 1.1-4.4 75 Insulin Antibodies < 5.0 uU/mL . 76 Glycohemoglobin 01/04/2016 [facility] Glycohemoglobin 11.4 % High 4.2-6.3 [address] (A1c) [place] [address] [phone] eAG 280 mg/dL Laboratory 01/04/2016 [facility] Glucose 308 mg/dL High 74-106 78 test finding [address] [place] [address] [phone] Microalbumin,R 01/04/2016 [facility] Microalbumi 841.0 Critical < 20.[address] andom Urine [address] n,Urine mg/[place] [address] [phone] Liver Function 01/04/2016 [facility] Total 7.5 g/dL 6.4-8.[address] [place] [address] [phone] Albumin 3.3 g/dL Low 3.4-5.0 Globulin 4.2 g/dL 1.9-4.3 Alb/Glob 0.8 ratio Bilirubin,Total 0.4 mg/dL 0.2-1.0 Bilirubin,Direct 0.1 mg/dL 0.0-0.2 Bilirubin,Indirect 0.3 mg/dL 0.0-0.9 Sgot/Ast 32 U/L 15-37 SGPT/Alt 55 U/L 12-78 Alkaline Phosphatase 111 U/L 45-117 CBC W/Automated Diff 01/04/2016 [facility] White Blood 5.4 K/uL 3.4-10.[address] [place] [address] [phone] Red Blood Count 5.78 M/uL 4.20-5.80 Hemoglobin 16.5 gm/dL 12.8-17.0 Hematocrit 47.2 % 38.0-48.0 Mean Cell Volume 81.7 fl 80.0-96.0 Mean Corpuscular HGB 28.5 pg 27.0-33.0 Mean Corpuscular HGB Conc 35.0 g/dL 31.7-36.0 Platelet Count 146 K/uL Low 150-400 Red Cell Distri Width SD 38.8 fl 36-51 Red Cell Distri Width %CV 13.1 % 11.6-15.8 Mean Platelet Volume 12.5 fL High 6.6-10.6 Neut% 57.3 % 33.0-73.0 Lymph % 32.1 % 17.0-56.0 [place] % 9.3 % 0.0-10.0 Eo% 0.9 % 0.0-5.0 Bas% 0.4 % 0.1-1.0 Neut# 3.09 K/uL 1.8-7.0 Lymph # 1.73 K/uL Low 1.8-7.0 [place] # 0.50 K/uL 0.0-0.8 Eos # 0.05 K/uL 0.0-0.5 Baso # 0.02 K/uL Low 0.1-0.2 Urine Screen 12/29/2015 [facility] Ua RFX Micro + See Note [address] [place] [address] [phone] Laboratory test 12/29/2015 [facility] Thyroid Stim 3.27 uIU/mL 0.30-4. finding [address] Hormone 20 [place] [address] [phone] Free T4 1.28 ng/dL 0.76-1.46 LDL Cholesterol 12/29/2015 [facility] Cholesterol 226 mg/dL High <200 [address] [place] [address] [phone] Triglycerides 499 mg/dL High <150 81 HDL Cholesterol 30 mg/dL Low >40 82 LDL-Cholesterol See Note mg/dL < 100 83 Laboratory test finding 12/29/2015 [facility] BUN 12 mg/dL 7-[address] [place] [address] [phone] Creatinine 0.9 mg/dL 0.6-1.3 Magnesium 1.6 mg/dL Low 1.8-2.4 Potassium 4.0 mmol/L 3.5-5.1 Sodium 135 mmol/L Low 136-145 CBC W/Automated Diff 12/29/2015 [facility] White Blood 6.0 K/uL 3.4-10.[address] [place] [address] [phone] Red Blood Count 5.99 M/uL High 4.20-5.80 Hemoglobin 17.0 gm/dL 12.8-17.0 Hematocrit 48.0 % 38.0-48.0 Mean Cell Volume 80.1 fl 80.0-96.0 Mean Corpuscular HGB 28.4 pg 27.0-33.0 Mean Corpuscular HGB Conc 35.4 g/dL 31.7-36.0 Platelet Count 149 K/uL Low 150-400 Red Cell Distri Width SD 36.9 fl 36-51 Red Cell Distri Width %CV 12.9 % 11.6-15.8 Mean Platelet Volume 12.1 fL High 6.6-10.6 Neut% 53.0 % 33.0-73.0 Lymph % 35.9 % 17.0-56.0 [place] % 9.8 % 0.0-10.0 Eo% 1.0 % 0.0-5.0 Bas% 0.3 % 0.1-1.0 Neut# 3.17 K/uL 1.8-7.0 Lymph # 2.15 K/uL 1.8-7.0 [place] # 0.59 K/uL 0.0-0.8 Eos # 0.06 K/uL 0.0-0.5 Baso # 0.02 K/uL Low 0.1-0.2 Laboratory test 12/29/2015 [facility] Vitamin 11.7 Low 30.0-100.[address] D,25-Hydroxy ng/[place] [address] [phone] Urinalysis With 12/29/2015 [facility] Urine Color YELLOW Yellow Microscopic [address] [place], [place] [id number] [phone] Urine Clarity CLEAR Clear Urine Glucose - Dipstick >=1000 mg/dL High Negative Urine Bilirubin - Dipstick NEGATIVE Negative Urine Ketone TRACE mg/dL High Negative Urine Specific [place] 1.025 1.010-1.030 Urine Blood TRACE Negative Urine PH 5.5 Low 6.5-7.5 Urine Protein - Dipstick 100 mg/dL High Negative Urine Urobilinogen - Dipstick 0.2 E.U./dL 0.2-1.0 Urine Nitrite - Dipstick NEGATIVE Negative Urine Leuk Esterase NEGATIVE Negative Urine RBC 0-2 rbc/hpf 0-2 Urine WBC 0-2 wbc/hpf 0-7 Urine Epithelial Cells FEW NONESEEN/lpf Urine Hyaline Cast 2-5 NONESEEN#/lpf Urine Mucus SMALL NONESEEN 1 E11.21 2 Note: Persistent reduction for 3 months or more in an eGFR <60 mL/min/1.73 m2 defines CKD. Patients with eGFR values >/=60 mL/min/1.73 m2 may also have CKD if evidence of persistent proteinuria is present. The original MDRD equation for estimated GFR is not valid for patients less than 18 years of age. Additional information may be found at www.kdoqi.org. 3 Reference Guidelines*: Desirable: ........... < 200 mg/dL Borderline High: ..... 200-239 mg/dL High: ................ >=240 mg/dL * The National Cholesterol Education Program (NCEP) 4 Reference Guidelines*: Normal: ............. < 150 mg/dL Borderline High: .... 150-199 mg/dL High: ............... 200-499 mg/dL Very High: .......... > 500 mg/dL * Source: National Cholesterol Education Program (NCEP) 5 Reference Guidelines*: Low HDL: ..... < 40 mg/dL Normal: ..... 40-60 mg/dL Desirable: ... > 60 mg/dL *The National Cholesterol Education Program(NCEP) 6 (LDL CANNOT BE CALCULATED FOR TRIGS >400 mg/dL) 7 Elevated levels of HbA1c suggest the need for more aggressive treatment of glycemia. The [place] [employer] recommends that a primary goal of therapy should be a HbA1c of <7% and that physicians should re-evaluate the treatment regimen in patients with HbA1c values consistently >8%. 8 Z79.899,I10,E78.2,E11.9 9 Elevated levels of HbA1c suggest the need for more aggressive treatment of glycemia. The [place] [employer] recommends that a primary goal of therapy should be a HbA1c of <7% and that physicians should re-evaluate the treatment regimen in patients with HbA1c values consistently >8%. 10 Reference Guidelines*: Desirable: ........... < 200 mg/dL Borderline High: ..... 200-239 mg/dL High: ................ >=240 mg/dL * The National Cholesterol Education Program (NCEP) 11 Reference Guidelines*: Normal: ............. < 150 mg/dL Borderline High: .... 150-199 mg/dL High: ............... 200-499 mg/dL Very High: .......... > 500 mg/dL * Source: National Cholesterol Education Program (NCEP) 12 Reference Guidelines*: Low HDL: ..... < 40 mg/dL Normal: ..... 40-60 mg/dL Desirable: ... > 60 mg/dL *The National Cholesterol Education Program(NCEP) 13 Reference Guidelines*: Optimal:........... <100 mg/dL Near Optimal....... 100-129 mg/dL Borderline High.... 130-159 mg/dL High............... 160-189 mg/dL Very High.......... >=190 mg/dL * Source: National Cholesterol Education Program (NCEP) 14 Note: Persistent reduction for 3 months or more in an eGFR <60 mL/min/1.73 m2 defines CKD. Patients with eGFR values >/=60 mL/min/1.73 m2 may also have CKD if evidence of persistent proteinuria is present. The original MDRD equation for estimated GFR is not valid for patients less than 18 years of age. Additional information may be found at www.kdoqi.org. 15 E11.,Z79.899,E78.2 16 Reference Guidelines*: Normal: ............. < 150 mg/dL Borderline High: .... 150-199 mg/dL High: ............... 200-499 mg/dL Very High: .......... > 500 mg/dL * Source: National Cholesterol Education Program (NCEP) 17 Performed at: RN - [facility] [address] [id number] Head Teacher: Cindy Sharma MD, Phone: [phone] 18 Reference Guidelines*: Low HDL: ..... < 40 mg/dL Normal: ..... 40-60 mg/dL Desirable: ... > 60 mg/dL *The National Cholesterol Education Program(NCEP) 19 URINE, CLEAN CATCH 20 Note: Persistent reduction for 3 months or more in an eGFR <60 mL/min/1.73 m2 defines CKD. Patients with eGFR values >/=60 mL/min/1.73 m2 may also have CKD if evidence of persistent proteinuria is present. The original MDRD equation for estimated GFR is not valid for patients less than 18 years of age. Additional information may be found at www.kdoqi.org. 21 Elevated levels of HbA1c suggest the need for more aggressive treatment of glycemia. The [place] [employer] recommends that a primary goal of therapy should be a HbA1c of <7% and that physicians should re-evaluate the treatment regimen in patients with HbA1c values consistently >8%. 22 Z79.899,E11.21,E78.5 23 Reference Guidelines*: Desirable: ........... < 200 mg/dL Borderline High: ..... 200-239 mg/dL High: ................ >=240 mg/dL * The National Cholesterol Education Program (NCEP) 24 Reference Guidelines*: Normal: ............. < 150 mg/dL Borderline High: .... 150-199 mg/dL High: ............... 200-499 mg/dL Very High: .......... > 500 mg/dL * Source: National Cholesterol Education Program (NCEP) 25 Reference Guidelines*: Low HDL: ..... < 40 mg/dL Normal: ..... 40-60 mg/dL Desirable: ... > 60 mg/dL *The National Cholesterol Education Program(NCEP) 26 Reference Guidelines*: Optimal:........... <100 mg/dL Near Optimal....... 100-129 mg/dL Borderline High.... 130-159 mg/dL High............... 160-189 mg/dL Very High.......... >=190 mg/dL * Source: National Cholesterol Education Program (NCEP) 27 URINE, CLEAN CATCH 28 Note: Persistent reduction for 3 months or more in an eGFR <60 mL/min/1.73 m2 defines CKD. Patients with eGFR values >/=60 mL/min/1.73 m2 may also have CKD if evidence of persistent proteinuria is present. The original MDRD equation for estimated GFR is not valid for patients less than 18 years of age. Additional information may be found at www.kdoqi.org. 29 Elevated levels of HbA1c suggest the need for more aggressive treatment of glycemia. The [place] [employer] recommends that a primary goal of therapy should be a HbA1c of <7% and that physicians should re-evaluate the treatment regimen in patients with HbA1c values consistently >8%. 30 E08.21 31 Reference Guidelines*: Desirable: ........... < 200 mg/dL Borderline High: ..... 200-239 mg/dL High: ................ >=240 mg/dL * The National Cholesterol Education Program (NCEP) 32 Reference Guidelines*: Normal: ............. < 150 mg/dL Borderline High: .... 150-199 mg/dL High: ............... 200-499 mg/dL Very High: .......... > 500 mg/dL * Source: National Cholesterol Education Program (NCEP) 33 Reference Guidelines*: Low HDL: ..... < 40 mg/dL Normal: ..... 40-60 mg/dL Desirable: ... > 60 mg/dL *The National Cholesterol Education Program(NCEP) 34 Reference Guidelines*: Optimal:........... <100 mg/dL Near Optimal....... 100-129 mg/dL Borderline High.... 130-159 mg/dL High............... 160-189 mg/dL Very High.......... >=190 mg/dL * Source: National Cholesterol Education Program (NCEP) 35 Elevated levels of HbA1c suggest the need for more aggressive treatment of glycemia. The [place] [employer] recommends that a primary goal of therapy should be a HbA1c of <7% and that physicians should re-evaluate the treatment regimen in patients with HbA1c values consistently >8%. 36 Note: Persistent reduction for 3 months or more in an eGFR <60 mL/min/1.73 m2 defines CKD. Patients with eGFR values >/=60 mL/min/1.73 m2 may also have CKD if evidence of persistent proteinuria is present. The original MDRD equation for estimated GFR is not valid for patients less than 18 years of age. Additional information may be found at www.kdoqi.org. 37 K21.9 ,E66.9,E78.2,Z79.899 38 Performed at: [facility] [address] [id number] Head Teacher: Cindy Sharma MD, Phone: [phone] Note: Persistent reduction for 3 months or more in an eGFR <60 mL/min/1.73 m2 defines CKD. Patients with eGFR values >/=60 mL/min/1.73 m2 may also have CKD if evidence of persistent proteinuria is present. The original MDRD equation for estimated GFR is not valid for patients less than 18 years of age. Additional information may be found at www.kdoqi.org. 40 Reference Guidelines*: Normal: ............. < 150 mg/dL Borderline High: .... 150-199 mg/dL High: ............... 200-499 mg/dL Very High: .......... > 500 mg/dL * Source: National Cholesterol Education Program (NCEP) 41 Reference Guidelines*: Low HDL: ..... < 40 mg/dL Normal: ..... 40-60 mg/dL Desirable: ... > 60 mg/dL *The National Cholesterol Education Program(NCEP) 42 Elevated levels of HbA1c suggest the need for more aggressive treatment of glycemia. The [place] [employer] recommends that a primary goal of therapy should be a HbA1c of <7% and that physicians should re-evaluate the treatment regimen in patients with HbA1c values consistently >8%. [address] CHERRY CALL [phone] FAX [phone] CHERRY CALL [phone] FAX [phone] 46 Negative <0.9 Indeterminate 0.9 - 1.0 Positive >1.0 47 Negative <9.0 Equivocal 9.0 - 11.0 Positive >11.0 48 Negative <9.0 Equivocal 9.0 - 11.0 Positive >11.0 This test was developed and its performance characteristics determined by [facility]. It has not been cleared or approved by the Food and Drug Administration. Performed at: - [facility] [id number] Head Teacher: Cindy Sharma MD, Phone: [phone] 49 0.0 - 0.045 ng/mL: Normal 0.046 - 0.5 ng/mL: Suggestive 0.6 - 1.5 ng/mL: Consistent 50 E11.21 E78.2 Z79.899 51 Elevated levels of HbA1c suggest the need for more aggressive treatment of glycemia. The [place] [employer] recommends that a primary goal of therapy should be a HbA1c of <7% and that physicians should re-evaluate the treatment regimen in patients with HbA1c values consistently >8%. 52 Reference Guidelines*: Low HDL: ..... < 40 mg/dL Normal: ..... 40-60 mg/dL Desirable: ... > 60 mg/dL *The National Cholesterol Education Program(NCEP) 53 Reference Guidelines*: Normal: ............. < 150 mg/dL Borderline High: .... 150-199 mg/dL High: ............... 200-499 mg/dL Very High: .......... > 500 mg/dL * Source: National Cholesterol Education Program (NCEP) 54 Performed at: RN - [facility] [address] [id number] Head Teacher: Cindy Sharma MD, Phone: [phone] 55 Note: Persistent reduction for 3 months or more in an eGFR <60 mL/min/1.73 m2 defines CKD. Patients with eGFR values >/=60 mL/min/1.73 m2 may also have CKD if evidence of persistent proteinuria is present. The original MDRD equation for estimated GFR is not valid for patients less than 18 years of age. Additional information may be found at www.kdoqi.org. 56 E66.9 I10 E11.21 57 Note: Persistent reduction for 3 months or more in an eGFR <60 mL/min/1.73 m2 defines CKD. Patients with eGFR values >/=60 mL/min/1.73 m2 may also have CKD if evidence of persistent proteinuria is present. The original MDRD equation for estimated GFR is not valid for patients less than 18 years of age. Additional information may be found at www.kdoqi.org. 58 Elevated levels of HbA1c suggest the need for more aggressive treatment of glycemia. The [place] [employer] recommends that a primary goal of therapy should be a HbA1c of <7% and that physicians should re-evaluate the treatment regimen in patients with HbA1c values consistently >8%. 59 Reference Guidelines*: Desirable: ........... < 200 mg/dL Borderline High: ..... 200-239 mg/dL High: ................ >=240 mg/dL * The National Cholesterol Education Program (NCEP) 60 Reference Guidelines*: Normal: ............. < 150 mg/dL Borderline High: .... 150-199 mg/dL High: ............... 200-499 mg/dL Very High: .......... > 500 mg/dL * Source: National Cholesterol Education Program (NCEP) 61 Reference Guidelines*: Low HDL: ..... < 40 mg/dL Normal: ..... 40-60 mg/dL Desirable: ... > 60 mg/dL *The National Cholesterol Education Program(NCEP) 62 Reference Guidelines*: Optimal:........... <100 mg/dL Near Optimal....... 100-129 mg/dL Borderline High.... 130-159 mg/dL High............... 160-189 mg/dL Very High.......... >=190 mg/dL * Source: National Cholesterol Education Program (NCEP) 63 E78.5 64 Reference Guidelines*: Desirable: ........... < 200 mg/dL Borderline High: ..... 200-239 mg/dL High: ................ >=240 mg/dL * The National Cholesterol Education Program (NCEP) 65 Reference Guidelines*: Normal: ............. < 150 mg/dL Borderline High: .... 150-199 mg/dL High: ............... 200-499 mg/dL Very High: .......... > 500 mg/dL * Source: National Cholesterol Education Program (NCEP) 66 Reference Guidelines*: Low HDL: ..... < 40 mg/dL Normal: ..... 40-60 mg/dL Desirable: ... > 60 mg/dL *The National Cholesterol Education Program(NCEP) 67 (LDL CANNOT BE CALCULATED FOR TRIGS >400 mg/dL) 68 Note: Persistent reduction for 3 months or more in an eGFR <60 mL/min/1.73 m2 defines CKD. Patients with eGFR values >/=60 mL/min/1.73 m2 may also have CKD if evidence of persistent proteinuria is present. The original MDRD equation for estimated GFR is not valid for patients less than 18 years of age. Additional information may be found at www.kdoqi.org. 69 Elevated levels of HbA1c suggest the need for more aggressive treatment of glycemia. The [place] [employer] recommends that a primary goal of therapy should be a HbA1c of <7% and that physicians should re-evaluate the treatment regimen in patients with HbA1c values consistently >8%. 70 Reference Guidelines*: Desirable: ........... < 200 mg/dL Borderline High: ..... 200-239 mg/dL High: ................ >=240 mg/dL * The National Cholesterol Education Program (NCEP) 71 Reference Guidelines*: Normal: ............. < 150 mg/dL Borderline High: .... 150-199 mg/dL High: ............... 200-499 mg/dL Very High: .......... > 500 mg/dL * Source: National Cholesterol Education Program (NCEP) 72 Reference Guidelines*: Low HDL: ..... < 40 mg/dL Normal: ..... 40-60 mg/dL Desirable: ... > 60 mg/dL *The National Cholesterol Education Program(NCEP) 73 Reference Guidelines*: Optimal:........... <100 mg/dL Near Optimal....... 100-129 mg/dL Borderline High.... 130-159 mg/dL High............... 160-189 mg/dL Very High.......... >=190 mg/dL * Source: National Cholesterol Education Program (NCEP) 74 Reference Range: <1.0 Negative > or=1.0 Positive Performed at: ES - [facility] [address] [place] [id number] Head Teacher: Maximo Trivedi MD, Phone: [phone] Performed at: RN - [facility] [address] [id number] Head Teacher: Cindy Sharma MD, Phone: [phone] 75 C-Peptide reference interval is for fasting patients. 76 This test is also known as insulin autoantibody or IAA. Reference Range: <5.0 Negative > or=5.0 Positive Performed at: ES - [facility] [address] [facility], [place], [place] [id number] Head Teacher: Maximo Trivedi MD, Phone: [phone] 77 Elevated levels of HbA1c suggest the need for more aggressive treatment of glycemia. The [place] [employer] recommends that a primary goal of therapy should be a HbA1c of <7% and that physicians should re-evaluate the treatment regimen in patients with HbA1c values consistently >8%. 78 QUERY: Is Patient Fasting? Y 79 12/29/15 LAB.TOW Deleted by [facility]lex Group [facility] [place] 80 Reference Guidelines*: Desirable: ........... < 200 mg/dL Borderline High: ..... 200-239 mg/dL High: ................ >=240 mg/dL * The National Cholesterol Education Program (NCEP) 81 Reference Guidelines*: Normal: ............. < 150 mg/dL Borderline High: .... 150-199 mg/dL High: ............... 200-499 mg/dL Very High: .......... > 500 mg/dL * Source: National Cholesterol Education Program (NCEP) 82 Reference Guidelines*: Low HDL: ..... < 40 mg/dL Normal: ..... 40-60 mg/dL Desirable: ... > 60 mg/dL *The National Cholesterol Education Program(NCEP) 83 Test not performed (LDL CANNOT BE CALCULATED FOR TRIGS >400 mg/dL) 84 Vitamin D deficiency has been defined by the [place] of Medicine and an Endocrine Society practice guideline as a level of serum 25-OH vitamin D less than 20 ng/mL (1,2). The Endocrine Society went on to further define vitamin D insufficiency as a level between 21 and 29 ng/mL (2). 1. IOM ([place] of Medicine). 2010. Dietary reference intakes for calcium and D. [place]: The National Academies Press. 2. Valery MF, Tian [place], Patrick INGRAM, et al. Evaluation, treatment, and prevention of vitamin D deficiency: an Endocrine Society clinical practice guideline. JCEM. 2011 Fernando; 96(7):1911-30. 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 hypertension E11.21 Type 2 diabetes mellitus with diabetic nephropathy E78.5 Hyperlipidemia, unspecified Z23 Encounter for immunization Z79.899 Other half-way (current) drug therapy Office Visit 05/06/2018 9:40a Primary Care Courtney Camarena, I10 Essential ( primary) Office M.D. hypertension E11.21 Type 2 diabetes mellitus with diabetic nephropathy Z79.899 Other half-way (current) drug therapy Office Visit 02/14/2018 1:00p Primary Care Courtney Camarena, I10 Essential ( primary) Office M.D. hypertension E78.2 Mixed hyperlipidemia E11.9 Type 2 diabetes mellitus without complications Z79.899 Other half-way (current) drug therapy Office Visit 09/20/2017 2:40p Primary Care Courtney Camarena, H00.014 Hordeolum Office M.D. externum left upper eyelid Z79.899 Other rodent exterminator (current) drug therapy I10 Essential (primary) hypertension Office Visit 07/23/2017 1:40p Primary Care Courtney Camarena, E11.21 Type 2 diabetes Office M.D. mellitus with diabetic nephropathy Z79.899 Other rodent exterminator (current) drug therapy E66.9 Obesity, unspecified I10 Essential (primary) hypertension E78.2 Mixed hyperlipidemia Z23 Encounter for immunization Office Visit 05/21/2017 2:15p Endocrinology Nicky Bright, E78.2 Mixed hyperlipidemia M.D. I10 Essential (primary) hypertension E66.9 Obesity, unspecified E08.21 Diabetes due to underlying condition w diabetic nephropathy R19.03 Right lower quadrant abdominal swelling, mass and lump R80.9 Proteinuria, unspecified Office Visit 02/25/2017 2:20p Primary Care Courtney Camarena, E66.9 Obesity, Office M.D. unspecified I10 Essential (primary) hypertension Z79.899 Other rodent exterminator (current) drug therapy E11.21 Type 2 diabetes mellitus with diabetic nephropathy E78.5 Hyperlipidemia, unspecified Office Visit 02/11/2017 2:20p Primary Care Nicol K21.9 Gastro-esophageal Office Marcial Valdez reflux disease without esophagitis I10 Essential (primary) hypertension R11.0 Nausea Office Visit 11/22/2016 2:00p Endocrinology Nicky Bright, E78.2 Mixed hyperlipidemia M.D. I10 Essential (primary) hypertension E66.9 Obesity, unspecified E08.21 Diabetes due to underlying condition w diabetic nephropathy Office Visit 11/05/2016 2:20p Primary Care Courtney Camarena, E66.9 Obesity, Office M.D. unspecified I10 Essential (primary) hypertension E78.2 Mixed hyperlipidemia E11.21 Type 2 diabetes mellitus with diabetic nephropathy Z79.899 Other rodent exterminator (current) drug therapy Office Visit 06/21/2016 1:00p Endocrinology Nicky Bright, E78.2 Mixed hyperlipidemia M.D. I10 Essential (primary) hypertension E66.9 Obesity, unspecified E11.9 Type 2 diabetes mellitus without complications R19.03 Right lower quadrant abdominal swelling, mass and lump R80.9 Proteinuria, unspecified Office Visit 06/11/2016 1:20p Primary Care Courtney Camarena, E78.2 Mixed hyperlipidemia Office M.D. I10 Essential (primary) hypertension E66.9 Obesity, unspecified E11.21 Type 2 diabetes mellitus with diabetic nephropathy Z79.899 Other half-way (current) drug therapy E55.9 Vitamin D deficiency, unspecified Office Visit 03/15/2016 11:15a Endocrinology Nicky Bright, E66.9 Obesity, M.D. unspecified I10 Essential (primary) hypertension E78.2 Mixed hyperlipidemia E11.9 Type 2 diabetes mellitus without complications R19.03 Right lower quadrant abdominal swelling, mass and lump R80.9 Proteinuria, unspecified Office Visit 02/01/2016 Surgical Office Ralph, K43.2 Incisional hernia 10:00a Kyle Zimmer, without M.D. obstruction or gangrene Office Visit 01/24/2016 Endocrinology Nicky Bright, E66.9 Obesity, 1:15p M.D. unspecified I10 Essential (primary) hypertension E78.2 Mixed hyperlipidemia E11.9 Type 2 diabetes mellitus without complications R19.03 Right lower quadrant abdominal swelling, mass and lump Office Visit 01/02/2016 2:20p Primary Care Courtney Camarena, K46.9 Unspecified Office M.D. abdominal hernia without obstruction or gangrene E78.5 Hyperlipidemia, unspecified E55.9 Vitamin D deficiency, unspecified D69.6 Thrombocytopenia, unspecified E08.9 Diabetes due to underlying condition w/o complications I10 Essential (primary) hypertension Office Visit 12/23/2015 8:40a Primary Care Courtney Camarena, Z00.01 Encounter for Office M.D. 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
[2019-03-13 16:50] VITALS: BP 135/80
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
== END 2019-03-13 17:26 | disposition home or self-care (01) ==
LOC: UCCORT 15:49
DX: H10.9 Unspecified conjunctivitis (principal); E11.9 Type 2 diabetes mellitus without complications; I10 Essential (primary) hypertension
CPT/HCPCS: 99212; G0463